=== PATIENT | female | born 1980 ===

== ENCOUNTER 2016-06-15 15:51 | Emergency (ER) | payer MEDICAID ==
[2016-06-15 15:52] VITALS: BMI 23.3
[2016-06-15 15:59] VITALS: BP 125/79; RESP 16; TEMP 98; O2SAT 100
--- NOTE | 2016-06-15 16:09 | ED PDOC ---
HPI: CCC, URI, Sore Throat Time Seen by Provider: 06/15/16 15:59 Chief Complaint (Nursing): Flu-like Symptoms Chief Complaint (Provider): Cough History Per: Patient History/Exam Limitations: no limitations Have you had recent travel within the past 21 days to any of the following countries: [place], [place], [place] or [place]?: No Onset/Duration Of Symptoms: Days (x3) Current Symptoms Are (Timing): Still Present Location Of Pain: Other (chest (cough-associated)) Sick Contacts (Context): None Associated Symptoms: Myalgias. denies: Fever, Chills, Sore Throat, Sputum, Vomiting, Diarrhea Ear Symptoms: Bilateral: None Severity: Moderate Additional Complaint(s): Lucrecia Jacob is a 35 year old female, with no pertinent past medical history, who presents to the ED on 06/15/16, accompanied by family members, for the evaluation of a moderate, non-productive cough that she has experienced over the past 3 days. Cough, reportedly worse at night, has been accompanied by both myalgias and a frontal headache (not worst of life). Denies fever, chills, sore throat, vomiting or diarrhea. Has medicated with Theraflu without relief. PMD: none Past Medical History Reviewed: Historical Data, Nursing Documentation, Vital Signs Vital Signs: Last Vital Signs Temp 98.0 F 06/15/16 15:55 Pulse 88 06/15/16 16:41 Resp 16 06/15/16 15:55 BP 125/79 06/15/16 15:55 Pulse Ox 100 06/15/16 16:13 - Medical History PMH: No Chronic Diseases Denies: Fractures, Chronic Kidney Disease - Surgical History Surgical History: - Family History Family History: States: Unknown Family Hx - Living Arrangements Living Arrangements: With Family - Immunization History Hx Tetanus Toxoid Vaccination: No Hx Influenza Vaccination: No Hx Pneumococcal Vaccination: No - Home Medications Home Medications: Ambulatory Orders Medication Instructions Recorded Carbamide Peroxide [Debrox] 2 drop OT DAILY #1 bottle 08/24/15 traMADol [Ultram] 50 mg PO TID #7 tab 08/24/15 Amoxicillin/Potassium Clav 1 tab PO BID #20 tablet 09/07/15 [Augmentin 875-125 Tablet] Dextromethorphan Polistirex 30 mg PO BID #100 micky.er.12h 06/15/16 [Delsym] Guaifenesin [Mucinex] 600 mg PO BID #14 tab.er.12h 06/15/16 - Allergies Allergies/Adverse Reactions: Allergies Allergy/AdvReac Type Severity Reaction Status Date / Time No Known Allergies Allergy Verified 06/15/16 15:54 Review of Systems Constitutional: Negative for: Fever, Chills ENT: Negative for: Throat Pain Respiratory: Positive for: Cough (w/cough associated chest pain). Negative for : Sputum Gastrointestinal: Negative for: Vomiting, Diarrhea Musculoskeletal: Positive for: Other (diffuse myalgias) Physical Exam - Reviewed Nursing Documentation Reviewed: Yes Vital Signs Reviewed: Yes - Physical Exam Appears: Positive for: Non-toxic, No Acute Distress Head Exam: Positive for: ATRAUMATIC, NORMOCEPHALIC Skin: Positive for: Normal Color, Warm, Dry Eye Exam: Positive for: Normal appearance, PERRL ENT: Positive for: TM Is/Are (normal b/l), Pharyngeal Erythema (mild), Other ( mild tenderness upon palpation of frontal sinuses, no maxillary sinus tenderness ). Negative for: Tonsillar Exudate, Tonsillar Swelling Cardiovascular/Chest: Positive for: Regular Rate, Rhythm. Negative for: Murmur Respiratory: Positive for: Normal Breath Sounds. Negative for: Respiratory Distress Neurologic/Psych: Positive for: Alert, Oriented - ECG O2 Sat by Pulse Oximetry: 100 (RA) Pulse Ox Interpretation: Normal Medical Decision Making Medical Decision Makin:59 Initial Impression: URI Initial Plan: * Cool Mist Nebulizer Treatment * Reevaluation Upon provider reevaluation patient is feeling better, is medically stable, and requires no further treatment in the ED at this time. Patient will be discharged home with Rx for Mucinex and Delsym Cough Syrup. Counseling was provided and all questions were answered regarding diagnosis and need for follow up with the referred clinic. There is agreement to discharge plan. Return if symptoms persist or worsen. Clinical Impression: URI Scribe Attestation: Documented by Cynthia Sam, acting as a scribe for Phyllis Baker PA-C. Provider Scribe Attestation: All medical record entries made by the Scribe were at my direction and personally dictated by me. I have reviewed the chart and agree that the record accurately reflects my personal performance of the history, physical exam, medical decision making, and the department course for this patient. I have also personally directed, reviewed, and agree with the discharge instructions and disposition. Disposition - Clinical Impression Clinical Impression: Upper respiratory infection - Patient ED Disposition Is Patient to be Admitted: No Counseled Patient/Family Regarding: Diagnosis, Need For Followup, Rx Given - Disposition Referrals: [facility] [Outside] Disposition: Routine/Home Disposition Time: 16:07 Condition: STABLE Prescriptions: Dextromethorphan Polistirex [Delsym] 30 mg PO BID #100 micky.er.12h Guaifenesin [Mucinex] 600 mg PO BID #14 tab.er.12h Instructions: Dextromethorphan (By mouth), Viral Syndrome (ED) Forms: [facility] ED School/Work Excuse Print Language: DIVEHI
[2016-06-15 16:49] VITALS: PULSE 88
== END 2016-06-15 16:41 | disposition home or self-care (01) ==
LOC: H.ER 15:51
DX: J06.9 Acute upper respiratory infection, unspecified (principal); J02.9 Acute pharyngitis, unspecified

== ENCOUNTER 2017-01-02 19:03 | Emergency (ER) | payer MEDICAID ==
[2017-01-02 19:03] VITALS: BMI 23.3
--- NOTE | 2017-01-02 19:47 | ED PDOC ---
HPI: General Adult Time Seen by Provider: 01/02/17 19:30 Chief Complaint (Nursing): Breast Problem Chief Complaint (Provider): left breast pain History Per: Patient (36 y/o female with left breast pain x 1 week intermittently. Has had mammogram last year wnl. Denies any other symptoms.) Past Medical History Reviewed: Historical Data, Nursing Documentation, Vital Signs Vital Signs: Last Vital Signs Temp 98 F 01/02/17 19:09 Pulse 96 H 01/02/17 19:09 Resp 18 01/02/17 19:09 BP 116/77 01/02/17 19:09 Pulse Ox 100 01/02/17 19:09 - Medical History PMH: Denies: Fractures, Chronic Kidney Disease - Surgical History Surgical History: - Family History Family History: States: Unknown Family Hx - Immunization History Hx Tetanus Toxoid Vaccination: No Hx Influenza Vaccination: No Hx Pneumococcal Vaccination: No - Home Medications Home Medications: Ambulatory Orders Medication Instructions Recorded Carbamide Peroxide [Debrox] 2 drop OT DAILY #1 bottle 08/24/15 traMADol [Ultram] 50 mg PO TID #7 tab 08/24/15 Amoxicillin/Potassium Clav 1 tab PO BID #20 tablet 09/07/15 [Augmentin 875-125 Tablet] Dextromethorphan Polistirex 30 mg PO BID #100 micky.er.12h 06/15/16 [Delsym] Guaifenesin [Mucinex] 600 mg PO BID #14 tab.er.12h 06/15/16 - Allergies Allergies/Adverse Reactions: Allergies Allergy/AdvReac Type Severity Reaction Status Date / Time No Known Allergies Allergy Verified 06/15/16 15:54 Review of Systems ROS Statement: Except As Marked, All Systems Reviewed And Found Negative Physical Exam - Reviewed Nursing Documentation Reviewed: Yes Vital Signs Reviewed: Yes - Physical Exam Appears: Positive for: Well, Non-toxic, No Acute Distress Head Exam: Positive for: ATRAUMATIC, NORMAL INSPECTION, NORMOCEPHALIC Skin: Positive for: Normal Color (BREAST exam: no abscess/cellulitis. No obvious cyst noted. Pain notes tenderness left lateral areola.), Warm Eye Exam: Positive for: EOMI, Normal appearance, PERRL ENT: Positive for: Normal ENT Inspection Neck: Positive for: Normal, Painless ROM Cardiovascular/Chest: Positive for: Regular Rate, Rhythm Respiratory: Positive for: CNT, Normal Breath Sounds Gastrointestinal/Abdominal: Positive for: Normal Exam, Bowel Sounds, Soft Back: Positive for: Normal Inspection Extremity: Positive for: Normal ROM Neurologic/Psych: Positive for: Alert, Oriented - ECG O2 Sat by Pulse Oximetry: 100 Disposition - Clinical Impression Clinical Impression: Pain of breast - Patient ED Disposition Is Patient to be Admitted: No - Disposition Disposition: Routine/Home Disposition Time: 19:47
[2017-01-02 21:14] VITALS: BP 128/78; PULSE 78; RESP 19; TEMP 98.4; O2SAT 98
== END 2017-01-02 21:14 | disposition home or self-care (01) ==
LOC: H.ER 19:03
DX: N64.4 Mastodynia (principal)

== ENCOUNTER 2017-04-12 16:00 | Emergency (ER) | payer MEDICAID ==
[2017-04-12 16:00] VITALS: BMI 23.3
[2017-04-12 16:08] VITALS: BP 109/72; PULSE 81; RESP 16; TEMP 98.7; O2SAT 98
--- NOTE | 2017-04-12 16:25 | ED PDOC ---
HPI: General Adult Time Seen by Provider: 04/12/17 16:03 Chief Complaint (Nursing): Abdominal Pain History Per: Patient Onset/Duration Of Symptoms: Days (1) Current Symptoms Are (Timing): Still Present Severity: Mild Pain Scale Rating Of: 2 Additional Complaint(s): Sore throat assoc with body aches and abd pain. Nausea but no vomiting or diarrhea. No fever. Past Medical History Vital Signs: Last Vital Signs Temp 98.7 F 04/12/17 16:06 Pulse 81 04/12/17 16:06 Resp 16 04/12/17 16:06 BP 109/72 04/12/17 16:06 Pulse Ox 98 04/12/17 16:25 - Medical History PMH: No Chronic Diseases Denies: Fractures, Chronic Kidney Disease - Surgical History Surgical History: - Family History Family History: States: Unknown Family Hx - Immunization History Hx Tetanus Toxoid Vaccination: No Hx Influenza Vaccination: No Hx Pneumococcal Vaccination: No - Home Medications Home Medications: Ambulatory Orders Medication Instructions Recorded Carbamide Peroxide [Debrox] 2 drop OT DAILY #1 bottle 08/24/15 traMADol [Ultram] 50 mg PO TID #7 tab 08/24/15 Amoxicillin/Potassium Clav 1 tab PO BID #20 tablet 09/07/15 [Augmentin 875-125 Tablet] Dextromethorphan Polistirex 30 mg PO BID #100 micky.er.12h 06/15/16 [Delsym] Guaifenesin [Mucinex] 600 mg PO BID #14 tab.er.12h 06/15/16 Naproxen 1 tab PO Q12 PRN #14 tab 01/02/17 Azithromycin [Zithromax] 250 mg PO DAILY #6 tab 04/12/17 - Allergies Allergies/Adverse Reactions: Allergies Allergy/AdvReac Type Severity Reaction Status Date / Time No Known Allergies Allergy Verified 06/15/16 15:54 Review of Systems Constitutional: Positive for: Malaise. Negative for: Fever ENT: Positive for: Throat Pain Respiratory: Negative for: Cough Gastrointestinal: Positive for: Abdominal Pain Genitourinary Female: Negative for: Dysuria, Frequency Musculoskeletal: Positive for: Back Pain Physical Exam - Physical Exam Appears: Positive for: Non-toxic, No Acute Distress Skin: Positive for: Normal Color, Warm, DRY ENT: Positive for: Pharyngeal Erythema. Negative for: Tonsillar Exudate, Tonsillar Swelling Neck: Positive for: Normal, Painless ROM Cardiovascular/Chest: Positive for: Regular Rate, Rhythm Respiratory: Positive for: CNT, Normal Breath Sounds Gastrointestinal/Abdominal: Positive for: Normal Exam, Bowel Sounds, Soft. Negative for: Tenderness Back: Negative for: L CVA Tenderness, R CVA Tenderness Extremity: Positive for: Normal ROM Neurologic/Psych: Positive for: Alert, Oriented - ECG O2 Sat by Pulse Oximetry: 98 Disposition - Clinical Impression Clinical Impression: Pharyngitis - Patient ED Disposition Is Patient to be Admitted: No Counseled Patient/Family Regarding: Studies Performed, Diagnosis, Need For Followup, Rx Given - Disposition Referrals: [facility] [Outside] Disposition: Routine/Home Disposition Time: 17:09 Condition: FAIR Prescriptions: Azithromycin [Zithromax] 250 mg PO DAILY #6 tab Instructions: Pharyngitis (ED) Forms: [facility] (Bulgarian) Print Language: SERBIAN
== END 2017-04-12 17:13 | disposition home or self-care (01) ==
LOC: H.ER 16:00
DX: J02.9 Acute pharyngitis, unspecified (principal)